=== PATIENT | female | born 1995 | race Caucasian/White ===

== ENCOUNTER 2020-06-24 13:48 | Emergency (ER) | payer OTHER ==
[2020-06-24] MEDS ORDERED: IPRATROPIUM/ALBUTEROL 3 ML NEB INH STA (14:13)
[2020-06-24] MEDS ORDERED: DEXAMETHASONE 10 MG/ML VIAL PO STA (14:13)
[2020-06-24] MEDS ORDERED: CHERRY SYRUP 10 ML UDC PO ONE (14:13)
--- NOTE | 2020-06-24 14:24 | ED Physician Documentation ---
PD HPI URI - Stated complaint Stated Complaint: SOA,CHEST TIGHTNESS,COUGH,HEADACHE - Chief complaint Chief Complaint: Resp - History obtained from History obtained from: Patient - History of Present Illness Timing - onset: How many days ago (4) Timing duration: Days (4) Timing details: Gradual onset, Still present Associated symptoms: Sore throat, Dry cough, Chest pain, Dyspnea Contributing factors: COPD / asthma (childhood minimal used an inhaler once.). No: Sick contact, Travel, Immunocompromised, Unimmunized Improves by: Rest Worsened by: Activity, Breathing Similar symptoms before: Diagnosis (URI) Recently seen: Not recently seen - Additional information Additional information: 25 y/o female with congestion and dyspnea consistent with prior asthma exacerbation. She has only mild cough and no fever. Review of Systems Constitutional: denies: Fever, Chills Eyes: denies: Decreased vision Ears: denies: Ear pain Nose: reports: Congestion. denies: Rhinorrhea / runny nose Throat: reports: Sore throat Cardiac: reports: Chest pain / pressure. 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 HEENT: Tonsil/Adenoidectomy - Present Medications Home Medications: Ambulatory Orders Medication Instructions Recorded Confirmed Albuterol Sulf [Ventolin Hfa 1 - 2 puffs INH Q4HR PRN #1 inhaler 06/24/20 Inhaler] Amox/Clav 875/125 [Augmentin] 1 each PO Q12H #20 tablet 06/24/20 - Allergies Allergies/Adverse Reactions: Allergies Allergy/AdvReac Type Severity Reaction Status Date / Time acetaminophen [From Percocet] AdvReac Nausea Verified 06/24/20 13:54 oxycodone [From Percocet] AdvReac Nausea Verified 06/24/20 13:54 - Social History Does the pt smoke?: No Smoking Status: Never smoker Does the pt drink ETOH?: No Does the pt have substance abuse?: No - Immunizations Immunizations are current?: Yes PD ED PE NORMAL - Vitals Vital signs reviewed: Yes (normal ) - General General: Alert and oriented X 3, No acute distress, Well developed/nourished - HEENT HEENT: Atraumatic, PERRL, EOMI, Pharynx benign, Other (Left TM is inflamed along the umbo and the right is flush. 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, No motor deficit, No sensory deficit, Normal speech Eye Opening: Spontaneous Motor: Obeys Commands Verbal: Oriented GCS Score: 15 - Psych Psych: Normal mood, Normal affect Results - Vitals Vitals: Vital Signs - 24 hr 06/24/20 06/24/20 06/24/20 13:51 14:46 14:55 Temperature 36.7 C 36.8 C Heart Rate 90 90 77 Respiratory 18 18 19 Rate Blood Pressure 127/74 117/80 O2 Saturation 99 98 Oxygen O2 Source Room air - Rads (name of study) chest Radiology: Prelim report reviewed (Impression: no acute cardiopulmonary abnormality ), EMP read indepedently, See rad report PD MEDICAL DECISION MAKING - ED course Complexity details: reviewed results, re-evaluated patient, considered differential, d/w patient ED course: 25 y/o female with exacerbation of reactive airway has OM on exam. She is given a dose of decadron and an inhalation Departure - Departure Disposition: 01 Home, Self Care Clinical Impression: Otitis media Qualifiers: Otitis media type: suppurative Chronicity: acute Laterality: left Recurrence: not specified as recurrent Spontaneous tympanic membrane rupture: without spontaneous rupture Qualified Code(s): H66.002 - Acute suppurative otitis media without spontaneous rupture of ear drum, left ear Reactive airway disease Qualifiers: Asthma severity: mild Asthma persistence: intermittent Asthma complication type: with acute exacerbation Qualified Code(s): J45.21 - Mild intermittent asthma with (acute) exacerbation Condition: Stable Instructions: ED Bronchitis Asthmatic, ED Otitis Media Acute Adult Follow-Up: [facility] [Provider Group] Prescriptions: Albuterol Sulf [Ventolin Hfa Inhaler] 1 - 2 puffs INH Q4HR PRN #1 inhaler PRN Reason: Shortness Of Air/Wheezing Amox/Clav 875/125 [Augmentin] 1 each PO Q12H #20 tablet Forms: Activity restrictions Discharge Date/Time: 06/24/20 15:49
[2020-06-24] MEDS ORDERED: ALBUTEROL 1 PUFF INH STA (14:38)
--- NOTE | 2020-06-24 14:57 | XRAY Report ---
PROCEDURE: Chest 2 View X-Ray INDICATIONS: SOA CHEST PAIN TECHNIQUE: 2 view(s) of the chest. COMPARISON: None. FINDINGS: Surgical changes and devices: None. Lungs and pleura: No pleural effusions or pneumothorax. Lungs are clear. Mediastinum: Mediastinal contours are normal. Heart size is normal. Bones and chest wall: No suspicious bony abnormalities. Soft tissues appear unremarkable. IMPRESSION: No acute cardiopulmonary abnormality. Reviewed by: Andrae Rios MD on 06/24/2020 1:55 PM [facility] Approved by: Andrae Rios MD on 06/24/2020 1:55 PM [facility] Station ID: [id number]
[2020-06-24 15:49] VITALS: BP 117/80
== END 2020-06-24 15:49 | disposition home or self-care (01) ==
LOC: ED 13:48
DX: J45.21 Mild intermittent asthma with (acute) exacerbation (principal); H66.002 Acute suppurative otitis media without spontaneous rupture of ear drum, left ear; Z20.822 Contact with and (suspected) exposure to COVID-19
CPT/HCPCS: 71046; 87635; 94640; 99284; A9270